=== PATIENT | female | born 1965 | race Caucasian/White ===

== ENCOUNTER → 2016-10-10 | Day surgery (SDC) | payer BC ==
[2013-12-27 14:56] VITALS: BMI 25.1
[~2016-10-10] MED LIST: BUPIVACAINE 0.5% 30 ML VIAL ONE; CEFAZOLIN 1 GM VIAL ONE; DEXAMETHASONE 4 MG/ML VIAL IV ONE; FENTANYL 100 MCG/2 ML VIAL IV PRN; GLYCOPYRROLATE 1 MG VIAL IM ONE; HYDROmorphone 1 MG INJECTION IV PRN; HYDROmorphone 2 MG/ML VIAL IM ONE; LABETALOL 20 MG/4 ML SYRINGE IV PRN; MEPERIDINE 25 MG/ML TUBEX IV PRN; MIDAZOLAM 2 MG/2 ML VIAL IV ONE; NEOSTIGMINE 1 MG/1 ML (1:1000) INJ 10 ML MDV IM ONE; ONDANSETRON HCL 4 MG ODT TAB PO PRN; ONDANSETRON HCL 4 MG/2 ML VIAL IV ONE; ONDANSETRON HCL 4 MG/2 ML VIAL IV PRN; PROPOFOL 200 MG/20 ML VIAL IV ONE; ROCURONIUM 50 MG/5 ML VIAL IV ONE; SUMATRIPTAN SUCCINATE 25 MG TAB PO ONE; hydrALAZINE 20 MG/ML VIAL IV PRN
--- NOTE | 2016-10-10 10:32 | HIM.ANES ---
Anesthesia Evaluation & Plan Diagnoses: INCISIONAL HERNIA WITHOUT OBSTRUCTION OR GANGRENE (10/10/16) - Focused Review of Systems Cardiac History: No: Hx Cardiac Disorders HEENT: Comment Only: Hx Vision Problem (wears glasses) Respiratory: Yes: Hx Pneumonia (07/2012) Gastrointestinal: Yes: Hx Gastroesophageal Reflux Disease, Hx Gastrointestinal Disorders Neurological/Musculoskeletal: Yes: Hx Migraine, Hx Neurological Disorders Psychological: Yes Hx Anxiety, Yes Hx Mental/Emotional Disorders HX Other Psyco/Soc Problems: panic attacks - Focused Physical Exam NPO since: after Midnight Mallampati: Class II Thyromental Distance: Greater than 3 Neck: Full Range of Motion Dental: Normal - no significant findings Cardiovascular/Chest: Normal Respiratory: Lungs clear Any problems with anesthesia, including nausea and vomiting?: Yes (nausea vomitting) Any relatives with a history of Malignant Hyperthermia?: No Other: Problem List Problem Status Onset Chest pain Acute Allergies Allergy/AdvReac Type Severity Reaction Status Date / Time adhesive Allergy Rash-Locali Verified 05/06/14 07:37 zed Home Medications Medication Instructions Recorded Last Taken Type Alprazolam [Xanax] 1 mg PO DAILY PRN 12/27/13 12/26/13 History Topiramate [Topamax] 100 mg PO DAILY 12/27/13 05/05/14 22:00 History Zolpidem Tartrate [Ambien] 10 mg PO HS 12/27/13 12/26/13 History Calcium Carbonate/Vitamin D3 1 each PO DAILY 05/06/14 05/05/14 06:00 History [Calcium 600 + Vit D Tablet] Ibuprofen Tablet [Motrin] 600 mg PO Q8H PRN 05/06/14 Unknown History Lactobacillus Combination No.4 1 each PO DAILY 05/06/14 05/05/14 06:00 History [Probiotic] Oxycodone HCl [Oxycodone Immediate 5 mg PO Q4H PRN 05/06/14 Unknown History Release Capsule] Promethazine HCl [Phenergan] 12.5 mg PO Q6H PRN 05/06/14 Unknown History Vitamin E 400 unit PO DAILY 05/06/14 05/05/14 06:00 History Height and Weight Patient's weight 69.4 kg BMI 25.1 - Anesthetic Plan Anesthesia Type: General ASA Class: 2 -: I have examined this patient and reviewed the medical record. The patient has been assessed prior to anesthesia. Risks and benefits of anesthesia and anesthetic technique options have been discussed and all questions answered. The patient accepts the risk and desires me to proceed with the planned anesthetic.
--- NOTE | 2016-10-10 13:10 | HIMOPRPT ---
DATE OF PROCEDURE: 10/10/16 PREOPERATIVE DIAGNOSIS: Incisional hernia and umbilical hernia. POSTOPERATIVE DIAGNOSIS: Incisional hernia and umbilical hernia. PROCEDURE: Incisional herniorrhaphy, umbilical herniorrhaphy and diagnostic laparoscopy. SURGEON: Emmett Sanchez MD ANESTHESIA: General anesthesia ANESTHESIOLOGIST: Dr. Dayron Pino MD SPECIMEN: Incisional hernia sac SPONGE COUNT: Correct. PATIENT CONDITION: Stable. ESTIMATED BLOOD LOSS: 1 cc INDICATIONS: This is a 51year old female with a reducible incisional hernia and reducible umbilical hernia. She also has discomfort in the right lower quadrant. It was recommended to the patient incisional herniorrhaphy with mesh , umbilical herniorrhaphy and diagnostic laparoscopy. The risks associated with the operation were discussed with the patient at length. The risks include , but are not limited to, bleeding, infection, infection of the mesh necessitating removal, injury to small or large intestine, hernia recurrence, chronic nonhealing wound, possible reoperation at a tertiary care center, perioperative cardiac and respiratory morbidity and mortality. All questions were answered. Informed consent was obtained. FINDINGS: The patient had a 1.5 fascial defect inferior to the umbilicus and a 0.5 centimeter defect deep to the umbilicus. There was no incarcerated small or large intestine. At the right lower quadrant, the appendix appeared normal. There was no evidence of active infection. PROCEDURE IN DETAIL: MANUELA WELLS was taken to the operative suite at [facility] and placed in the supine position. The anterior abdomen was sterilely prepped and draped in the usual fashion. All members of the surgical team were in agreement, correct patient and correct procedure. A curvilinear incision was made inferior to the umbilicus and dissection was carried down to the fascial level. The umbilicus was dissected free from the hernia sac. The hernia sac was entered. There was no incarcerated small or large intestine. The redundant hernia sac was removed and passed off as specimen. A 5 mm trocar was inserted and the peritoneal cavity was insufflated. A laparoscope was inserted with findings as described above. The trocar was removed and CO2 gas was allowed to escape from the peritoneal cavity. A medium Ventralex patch was placed, completely covering the incisional hernia and umbilical hernia. The mesh was secured with 2-0 Vicryl U sutures. The fascia was closed over the mesh with 0 Vicryl figure of eight sutures. The subcutaneous tissue was closed with 3-0 Vicryl suture after tacking the umbilicus to the fascia. The area was infiltrated with local anesthetic. The incision was closed with 4-0 Monocryl subcuticular suture. Antibiotic ointment was applied. Anesthesia was reversed and the patient was taken to the recovery area having tolerated the procedure well.
[2016-10-10 13:30] VITALS: TEMP 99
--- NOTE | 2016-10-10 13:40 | SC.ANESPOS ---
Post-Anesthesia Note LOC: Fully Awake Post-Anesthesia Assessment: Awake, Returned to Baseline, Hemodynamically Stable , Pain Control Adequate Phase I & II Recovery Complete: Yes Apparent Anesthesia Complication: No : N - Vital Signs Blood Pressure: 115/68 Pulse: 71 Resp Rate: 14 O2 Sat: 100 Temp: 99 F
[2016-10-10 15:12] VITALS: BP 109/65; PULSE 65
== END ==
LOC: SDC 09:38
PROVIDERS: ATTEND Surgery
PROC: 0WUF0JZ Supplement Abdominal Wall with Synthetic Substitute, Open Approach (ICD-10-PCS; principal; 2016-10-10 10:45)
DX: K43.2 Incisional hernia without obstruction or gangrene (principal); K42.9 Umbilical hernia without obstruction or gangrene; K21.9 Gastro-esophageal reflux disease without esophagitis; G43.909 Migraine, unspecified, not intractable, without status migrainosus; Z79.899 Other long term (current) drug therapy
CPT/HCPCS: 49560; 49568; 49585; 81025; C1781; J0690; J1100; J1170; J2250; J2405; J2710; J3490; J3010